=== PATIENT | male | born 1980 | race Caucasian/White ===

== ENCOUNTER 2016-11-15 23:52 | Emergency (ER) | payer OTHER ==
[~2016-11-15] VITALS: Ht 172.7 cm; Wt 79.4 kg
[2016-11-16] MEDS ORDERED: SULFACETAMIDE SOD 10% OPHT DR 15 ML BOTTLE OP ONE (00:30)
--- NOTE | 2016-11-16 00:31 | NUR ---
Patient discharged to home in stable conditon. Written and verbal after care instructions given. Patient verbalizes understanding of instructions.
[2016-11-16] MEDS ORDERED: SULFACETAMIDE SOD 10% OPHT DR 15 ML BOTTLE ONE (00:35)
== END 2016-11-16 00:32 | disposition home or self-care (01) ==
LOC: ER 23:55
DX: B99.9 Unspecified infectious disease (principal); H10.89 Other conjunctivitis; Z88.0 Allergy status to penicillin; Z88.1 Allergy status to other antibiotic agents; Z88.6 Allergy status to analgesic agent
CPT/HCPCS: A4663